=== PATIENT | female | born 1970 | race Caucasian/White ===

== ENCOUNTER → 2016-07-03 | Outpatient (CLI) | payer BC ==
--- NOTE | 2016-07-03 11:23 | CT ---
EXAMINATION TYPE: CT abdomen w con DATE OF EXAM: 07/03/2016 10:33 AM COMPARISON: NONE HISTORY: Patient complains of RUQ pain and mass (marked by BB). CT DLP: 1522 mGycm CONTRAST: CT scan of the abdomen is performed with Oral Contrast and with IV Contrast, patient injected with 10 0 mL of Omnipaque 300. FINDINGS: LUNG BASES-: No visible nodule. No infiltrate. There is right basilar atelectasis. LIVER/GB: Cholecystectomy clips are in place. No space occupying hepatic lesion. Biliary tree is o f normal caliber. PANCREAS: Again noted is fullness in the region of the pancreatic head and uncinate process which may reflect underlying pancreatitis without peripancreatic fluid or pseudocyst. Underlying mass is diffi cult to exclude in one should consider MRI. SPLEEN: No splenic enlargement. No lesion seen. ADRENALS: No nodule. No thickening. KIDNEYS/BLADDER: No hydronephrosis. No nephrolithiasis. No disctinct renal mass. Urinary bladder g rossly unremarkable. BOWEL: Normal appendix. Normal bowel caliber. No inflammation. LYMPH NODES: Multiple small lymph nodes measuring up to 1 cm are noted within the small bowel mesente ry. No evidence for retroperitoneal adenopathy AORTA: No significant abnormality. OSSEOUS STRUCTURES: No significant abnormality is seen. OTHER: Palpable abnormality corresponds to a lipoma measuring 5.5 x 4.1 cm. IMPRESSION: 1. Again noted is fullness in the region of the pancreatic head and uncinate process which may refle ct underlying pancreatitis without peripancreatic fluid or pseudocyst. Underlying mass is difficult t o exclude in one should consider MRI. 2.Palpable abnormality corresponds to a lipoma measuring 5.5 x 4.1 cm.
== END | disposition home or self-care (01) ==
LOC: RADCTMAIN 08:28
PROVIDERS: ATTEND Internal Medicine Critical Care Medicine
DX: R07.89 Other chest pain (principal); R10.11 Right upper quadrant pain
CPT/HCPCS: 74160; Q9967

== ENCOUNTER → 2016-07-06 | Outpatient (CLI) | payer BC | END | disposition home or self-care (01) | LOC: LABWHC1 12:47 | PROVIDERS: ATTEND Internal Medicine Critical Care Medicine | DX: R10.11 Right upper quadrant pain (principal); I10 Essential (primary) hypertension; K86.89 Other specified diseases of pancreas; R93.5 Abnormal findings on diagnostic imaging of other abdominal regions, including retroperitoneum | CPT/HCPCS: 36415; 82150; 82378; 83690; 86301 ==

== ENCOUNTER → 2016-07-11 | Outpatient (CLI) | payer BC ==
[2016-07-11 17:27] LABS: Blood Urea Nitrogen 25 mg/dL (7-17); Non-African American GFR(MDRD) >60 (>60 ml/min/1.73 sqM)
== END ==
LOC: LABWHC1 17:00
PROVIDERS: ATTEND Internal Medicine Critical Care Medicine
DX: R10.11 Right upper quadrant pain (principal)
CPT/HCPCS: 36415; 82565; 84520

== ENCOUNTER → 2018-03-20 | Outpatient (CLI) | payer BC ==
--- NOTE | 2018-03-22 12:14 | MM ---
Reason for exam: screening (asymptomatic). Last mammogram was performed 1 year and 11 months ago. History: Family history of breast cancer in aunt and breast cancer in grandmother. Reductions of both breasts, 1995. Took hormonal contraceptives for 1 year beginning at age 16. Physical Findings: A clinical breast exam by your physician is recommended on an annual basis and results should be correlated with mammographic findings. MG Screening Mammo w CAD Bilateral CC and MLO view(s) were taken. Prior study comparison: April 06, 2016, bilateral MG screening mammo w CAD. April 09, 2015, bilateral MG screening mammo w CAD. There are scattered fibroglandular densities. There is a circumscribed right middle depth lower inner quadrant oval mass back to 2014. No suspicious abnormality. No significant changes when compared with prior studies. ASSESSMENT: Benign, BI-RAD 2 RECOMMENDATION: Routine screening mammogram of both breasts in 1 year.
== END | disposition home or self-care (01) ==
LOC: RADMAMWWP 14:52
PROVIDERS: ATTEND Internal Medicine
DX: Z12.31 Encounter for screening mammogram for malignant neoplasm of breast (principal)
CPT/HCPCS: 77067

== ENCOUNTER → 2019-04-19 | Outpatient (CLI) | payer BC ==
[2019-04-19 12:00] LABS: Basophils % (A) 1 %; Eosinophils # (A) 0.1 k/uL (0-0.7); Eosinophils % (A) 2 %; HCT 42.4 % (34.0-46.0); HGB 13.4 gm/dL (11.4-16.0); Lymphocytes # (A) 1.7 k/uL (1.0-4.8); Lymphocytes % (A) 25 %; MCH 28.1 pg (25.0-35.0); MCHC 31.5 g/dL (31.0-37.0); MCV 89.2 fL (80.0-100.0); Mean Platelet Volume 7.7; Monocytes # (A) 0.4 k/uL (0-1.0); Monocytes % (A) 6 %; Neutrophils # (A) 4.5 k/uL (1.3-7.7); Neutrophils % (A) 66 %; Platelet Count 214 k/uL (150-450); RBC 4.76 m/uL (3.80-5.40); RDW 13.2 % (11.5-15.5); WBC 6.8 k/uL (3.8-10.6)
[2019-04-19 16:33] LABS: African American GFR (CKD) 116.3 (60.0-200.0); Albumin 4.5 g/dL (3.80-4.90); Albumin/Globulin Ratio 1.67 (1.60-3.17); Anion Gap 5.6 mmol/L (4.00-12.00); BUN/Creat Ratio 27.14 Ratio (12.00-20.00); Calcium 9.8 mg/dL (8.7-10.3); Carbon Dioxide 33.4 mmol/L (21.6-31.8); Chol/HDL Ratio 2.86; Globulin 2.7 g/dL (1.6-3.3); LDL Cholesterol,Calculated 95.8 mg/dL (0.0-131.0); Non-African American GFR(CKD) 100.3 (60.0-200.0); Potassium 3.9 mmol/L (3.5-5.5); Total Bilirubin 0.5 mg/dL (0.3-1.2); Total Protein 7.2 g/dL (6.2-8.2); VLDL Calculation 14.2 mg/dL (5.00-40.00)
== END | disposition home or self-care (01) ==
LOC: LABWHC1 10:52
PROVIDERS: ATTEND Internal Medicine
DX: Z00.00 Encounter for general adult medical examination without abnormal findings (principal); Z13.220 Encounter for screening for lipoid disorders; I10 Essential (primary) hypertension
CPT/HCPCS: 36415; 80053; 80061; 85025

== ENCOUNTER 2019-10-19 02:32 | Observation (INO) | payer BC, MEDICARE ==
[2019-10-19] MEDS ORDERED: SODIUM CHLORIDE 0.9% 1,000 ML IV STA (02:41)
--- NOTE | 2019-10-19 02:42 | ED ---
Altered Mental Status HPI - General Chief Complaint: Neuro Symptoms/Deficit Stated Complaint: Altered Mental Status Time Seen by Provider: 10/19/19 02:41 Source: patient, family Mode of arrival: ambulatory Limitations: altered mental status - History of Present Illness Initial Comments: This is a 49-year-old female presents with acute memory loss. Patient has lost all memory of recent events. No prior history of same. Patient was having sexual intercourse when after sexual present illness patient was unable to remember where she was when she was doing in her name was. states patient's memory is not improving brings her DF for evaluation patient is unable to provide history of Recurrent questions is unsure where she has MD Complaint: altered mental status -: minutes(s) Severity: mild Consistency of Symptoms: constant Associated Symptoms: denies other symptoms - Related Data Home Medications Medication Instructions Recorded Confirmed Albuterol Sulfate [Ventolin HFA] 2 puff INHALATION Q4-6H PRN 05/12/15 10/19/19 Metoprolol Tartrate 50 mg PO DAILY 05/12/15 10/19/19 Cholecalciferol [Vitamin D3 (25 1,000 unit PO DAILY 10/19/19 10/19/19 Mcg = 1000 Iu)] Cyanocobalamin [Vitamin B-12] 500 mcg PO DAILY 10/19/19 10/19/19 Ferrous Gluconate 324 mg PO DAILY 10/19/19 10/19/19 Hydrochlorothiazide [Hydrodiuril] 25 mg PO DAILY 10/19/19 10/19/19 Levothyroxine Sodium [Synthroid] 150 mcg PO DAILY 10/19/19 10/19/19 Levothyroxine Sodium [Synthroid] 150 mcg PO DAILY 10/19/19 10/19/19 Pyridostigmine [Mestinon] 60 mg PO Q4H 10/19/19 10/19/19 Zinc 50 mg PO DAILY 10/19/19 10/19/19 Allergies Allergy/AdvReac Type Severity Reaction Status Date / Time No Known Allergies Allergy Verified 10/19/19 16:33 Review of Systems ROS Statement: Those systems with pertinent positive or pertinent negative responses have been documented in the HPI. ROS Other: All systems not noted in ROS Statement are negative. 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 History of Any Multi-Drug Resistant Organisms: None Reported Past Surgical History: Breast Surgery, Section, Cholecystectomy Past Psychological History: Anxiety Smoking Status: Former smoker Past Alcohol Use History: None Reported Past Drug Use History: None Reported General Exam Limitations: no limitations General appearance: alert, in no apparent distress Head exam: Present: atraumatic, normocephalic, normal inspection Eye exam: Present: normal appearance, PERRL, EOMI. Absent: scleral icterus, conjunctival injection, periorbital swelling ENT exam: Present: normal exam, mucous membranes moist Neck exam: Present: normal inspection. Absent: tenderness, meningismus, lymphad enopathy Respiratory exam: Present: normal lung sounds bilaterally. Absent: respiratory distress, wheezes, rales, rhonchi, stridor Cardiovascular Exam: Present: regular rate, normal rhythm, normal heart sounds. Absent: systolic murmur, diastolic murmur, rubs, gallop, clicks GI/Abdominal exam: Present: soft, normal bowel sounds. Absent: distended, tenderness, guarding, rebound, rigid Extremities exam: Present: normal inspection, full ROM, normal capillary refill. Absent: tenderness, pedal edema, joint swelling, calf tenderness Back exam: Present: normal inspection Neurological exam: Present: alert, oriented X3, CN II-XII intact Psychiatric exam: Present: normal affect, normal mood Skin exam: Present: warm, dry, intact, normal color. Absent: rash Course Vital Signs 10/19/19 10/19/19 10/19/19 02:35 03:20 04:00 Temperature 97.8 F Pulse Rate 104 H 66 76 Pulse Rate [ Right Radial] Respiratory 18 16 18 Rate Blood Pressure 145/80 125/78 127/88 Blood Pressure [Right Arm] O2 Sat by Pulse 96 96 97 Oximetry 10/19/19 10/19/19 10/19/19 05:00 06:00 10:37 Temperature Pulse Rate 65 72 60 Pulse Rate [ Right Radial] Respiratory 19 16 18 Rate Blood Pressure 119/73 126/71 115/66 Blood Pressure [Right Arm] O2 Sat by Pulse 97 97 98 Oximetry 10/19/19 10/19/19 10/19/19 13:39 15:38 16:00 Temperature 97.4 F L Pulse Rate 66 87 Pulse Rate [ 52 L Right Radial] Respiratory 20 16 16 Rate Blood Pressure 118/79 119/87 Blood Pressure 115/65 [Right Arm] O2 Sat by Pulse 99 99 99 Oximetry - Reevaluation(s) Reevaluation #1: Medical records reviewed No improvement in symptoms here in the ER Medical Decision Making - Medical Decision Making 49 female with transient global amnesia secondary sexual intercourse. Patient is no acute distress or findings here in the ER no focal neurological deficit. Patient will be admitted for observation - Lab Data Result diagrams: 10/19/19 02:49 10/19/19 02:49 Lab Results 10/19/19 10/19/19 10/19/19 Range/Units 02:44 02:49 02:49 WBC 8.1 (3.8-10.6) k/uL RBC 4.78 (3.80-5.40) m/uL Hgb 13.2 (11.4-16.0) gm/dL Hct 41.8 (34.0-46.0) % MCV 87.5 (80.0-100.0) fL MCH 27.6 (25.0-35.0) pg MCHC 31.5 (31.0-37.0) g/dL RDW 13.4 (11.5-15.5) % Plt Count 216 (150-450) k/uL Neutrophils % 77 % Lymphocytes % 15 % Monocytes % 6 % Eosinophils % 1 % Basophils % 0 % Neutrophils # 6.2 (1.3-7.7) k/uL Lymphocytes # 1.2 (1.0-4.8) k/uL Monocytes # 0.5 (0-1.0) k/uL Eosinophils # 0.1 (0-0.7) k/uL Basophils # 0.0 (0-0.2) k/uL PT 9.8 (9.0-12.0) sec INR 0.9 (<1.2) APTT 24.8 (22.0-30.0) sec Sodium (137-145) mmol/L Potassium (3.5-5.1) mmol/L Chloride (98-107) mmol/L Carbon Dioxide (22-30) mmol/L Anion Gap mmol/L BUN (7-17) mg/dL Creatinine (0.52-1.04) mg/dL Est GFR (CKD-EPI)AfAm (>60 ml/min/1.73 sqM) Est GFR (CKD-EPI)NonAf (>60 ml/min/1.73 sqM) Glucose (74-99) mg/dL POC Glucose (mg/dL) 113 H (75-99) mg/dL POC Glu Supply Crib Attendant ID Patrice Michel Calcium (8.4-10.2) mg/dL Total Bilirubin (0.2-1.3) mg/dL AST (14-36) U/L ALT (4-34) U/L Alkaline Phosphatase (38-126) U/L Creatine Kinase (30-135) U/L Troponin I (0.000-0.034) ng/mL Total Protein (6.3-8.2) g/dL Albumin (3.5-5.0) g/dL Triglycerides (<150) mg/dL Cholesterol (<200) mg/dL LDL Cholesterol, Calc (0-99) mg/dL HDL Cholesterol (40-60) mg/dL Urine Color Urine Appearance (Clear) Urine pH (5.0-8.0) Ur Specific [place] (1.001-1.035) Urine Protein (Negative) Urine Glucose (UA) (Negative) Urine Ketones (Negative) Urine Blood (Negative) Urine Nitrite (Negative) Urine Bilirubin (Negative) Urine Urobilinogen (<2.0) mg/dL Ur Leukocyte Esterase (Negative) Urine Opiates Screen (NotDetected) Ur Oxycodone Screen (NotDetected) Urine Methadone Screen (NotDetected) Ur Propoxyphene Screen (NotDetected) Ur Barbiturates Screen (NotDetected) U Tricyclic Antidepress (NotDetected) Ur Phencyclidine Scrn (NotDetected) Ur Amphetamines Screen (NotDetected) U Methamphetamines Scrn (NotDetected) U Benzodiazepines Scrn (NotDetected) Urine Cocaine Screen (NotDetected) U Marijuana (THC) Screen (NotDetected) 10/19/19 10/19/19 10/19/19 Range/Units 02:49 02:49 02:49 WBC (3.8-10.6) k/uL RBC (3.80-5.40) m/uL Hgb (11.4-16.0) gm/dL Hct (34.0-46.0) % MCV (80.0-100.0) fL MCH (25.0-35.0) pg MCHC (31.0-37.0) g/dL RDW (11.5-15.5) % Plt Count (150-450) k/uL Neutrophils % % Lymphocytes % % Monocytes % % Eosinophils % % Basophils % % Neutrophils # (1.3-7.7) k/uL Lymphocytes # (1.0-4.8) k/uL Monocytes # (0-1.0) k/uL Eosinophils # (0-0.7) k/uL Basophils # (0-0.2) k/uL PT (9.0-12.0) sec INR (<1.2) APTT (22.0-30.0) sec Sodium 140 (137-145) mmol/L Potassium 3.7 (3.5-5.1) mmol/L Chloride 105 (98-107) mmol/L Carbon Dioxide 28 (22-30) mmol/L Anion Gap 7 mmol/L BUN 23 H (7-17) mg/dL Creatinine 0.75 (0.52-1.04) mg/dL Est GFR (CKD-EPI)AfAm >90 (>60 ml/min/1.73 sqM) Est GFR (CKD-EPI)NonAf >90 (>60 ml/min/1.73 sqM) Glucose 116 H (74-99) mg/dL POC Glucose (mg/dL) (75-99) mg/dL POC Glu Supply Crib Attendant ID Calcium 10.0 (8.4-10.2) mg/dL Total Bilirubin 0.3 (0.2-1.3) mg/dL AST 29 (14-36) U/L ALT 22 (4-34) U/L Alkaline Phosphatase 108 (38-126) U/L Creatine Kinase 54 (30-135) U/L Troponin I <0.012 (0.000-0.034) ng/mL Total Protein 8.4 H (6.3-8.2) g/dL Albumin 4.8 (3.5-5.0) g/dL Triglycerides 46 (<150) mg/dL Cholesterol 200 H (<200) mg/dL LDL Cholesterol, Calc 130 H (0-99) mg/dL HDL Cholesterol 61 H (40-60) mg/dL Urine Color Urine Appearance (Clear) Urine pH (5.0-8.0) Ur Specific [place] (1.001-1.035) Urine Protein (Negative) Urine Glucose (UA) (Negative) Urine Ketones (Negative) Urine Blood (Negative) Urine Nitrite (Negative) Urine Bilirubin (Negative) Urine Urobilinogen (<2.0) mg/dL Ur Leukocyte Esterase (Negative) Urine Opiates Screen (NotDetected) Ur Oxycodone Screen (NotDetected) Urine Methadone Screen (NotDetected) Ur Propoxyphene Screen (NotDetected) Ur Barbiturates Screen (NotDetected) U Tricyclic Antidepress (NotDetected) Ur Phencyclidine Scrn (NotDetected) Ur Amphetamines Screen (NotDetected) U Methamphetamines Scrn (NotDetected) U Benzodiazepines Scrn (NotDetected) Urine Cocaine Screen (NotDetected) U Marijuana (THC) Screen (NotDetected) 10/19/19 Range/Units 03:58 WBC (3.8-10.6) k/uL RBC (3.80-5.40) m/uL Hgb (11.4-16.0) gm/dL Hct (34.0-46.0) % MCV (80.0-100.0) fL MCH (25.0-35.0) pg MCHC (31.0-37.0) g/dL RDW (11.5-15.5) % Plt Count (150-450) k/uL Neutrophils % % Lymphocytes % % Monocytes % % Eosinophils % % Basophils % % Neutrophils # (1.3-7.7) k/uL Lymphocytes # (1.0-4.8) k/uL Monocytes # (0-1.0) k/uL Eosinophils # (0-0.7) k/uL Basophils # (0-0.2) k/uL PT (9.0-12.0) sec INR (<1.2) APTT (22.0-30.0) sec Sodium (137-145) mmol/L Potassium (3.5-5.1) mmol/L Chloride (98-107) mmol/L Carbon Dioxide (22-30) mmol/L Anion Gap mmol/L BUN (7-17) mg/dL Creatinine (0.52-1.04) mg/dL Est GFR (CKD-EPI)AfAm (>60 ml/min/1.73 sqM) Est GFR (CKD-EPI)NonAf (>60 ml/min/1.73 sqM) Glucose (74-99) mg/dL POC Glucose (mg/dL) (75-99) mg/dL POC Glu Supply Crib Attendant ID Calcium (8.4-10.2) mg/dL Total Bilirubin (0.2-1.3) mg/dL AST (14-36) U/L ALT (4-34) U/L Alkaline Phosphatase (38-126) U/L Creatine Kinase (30-135) U/L Troponin I (0.000-0.034) ng/mL Total Protein (6.3-8.2) g/dL Albumin (3.5-5.0) g/dL Triglycerides (<150) mg/dL Cholesterol (<200) mg/dL LDL Cholesterol, Calc (0-99) mg/dL HDL Cholesterol (40-60) mg/dL Urine Color Yellow Urine Appearance Clear (Clear) Urine pH 5.0 (5.0-8.0) Ur Specific [place] 1.041 H (1.001-1.035) Urine Protein Negative (Negative) Urine Glucose (UA) Negative (Negative) Urine Ketones Negative (Negative) Urine Blood Negative (Negative) Urine Nitrite Negative (Negative) Urine Bilirubin Negative (Negative) Urine Urobilinogen <2.0 (<2.0) mg/dL Ur Leukocyte Esterase Negative (Negative) Urine Opiates Screen Not Detected (NotDetected) Ur Oxycodone Screen Not Detected (NotDetected) Urine Methadone Screen Not Detected (NotDetected) Ur Propoxyphene Screen Not Detected (NotDetected) Ur Barbiturates Screen Not Detected (NotDetected) U Tricyclic Antidepress Not Detected (NotDetected) Ur Phencyclidine Scrn Not Detected (NotDetected) Ur Amphetamines Screen Not Detected (NotDetected) U Methamphetamines Scrn Not Detected (NotDetected) U Benzodiazepines Scrn Not Detected (NotDetected) Urine Cocaine Screen Not Detected (NotDetected) U Marijuana (THC) Screen Not Detected (NotDetected) - EKG Data -: EKG Interpreted by Me (EKG shows sinus a 95 PA 200 QRS 92 QTC 444) - Radiology Data Radiology results: report reviewed (CT brain CTA had neck negative for acute disease), image reviewed Disposition Clinical Impression: Transient global amnesia Disposition: ADMITTED IP TO THIS [facility] Condition: Good Is patient prescribed a controlled substance at d/c from ED?: No
[2019-10-19 02:53] LABS: Glucose,Whole Blood 113 mg/dL (75-99)
[2019-10-19 03:07] LABS: INR 0.9 (<1.2); Partial Thromboplastin Time 24.8 sec (22.0-30.0); Prothrombin Time 9.8 sec (9.0-12.0)
[2019-10-19 03:17] LABS: ALT 22 U/L (4-34); AST 29 U/L (14-36); African American GFR (CKD) >90 (>60 ml/min/1.73 sqM); Albumin 4.8 g/dL (3.5-5.0); Alkaline Phosphatase 108 U/L (38-126); Anion Gap 7 mmol/L; Basophils % (A) 0 %; Blood Urea Nitrogen 23 mg/dL (7-17); Carbon Dioxide 28 mmol/L (22-30); Chloride 105 mmol/L (98-107); Creatine Kinase 54 U/L (30-135); Eosinophils # (A) 0.1 k/uL (0-0.7); Eosinophils % (A) 1 %; Glucose 116 mg/dL (74-99); HCT 41.8 % (34.0-46.0); HGB 13.2 gm/dL (11.4-16.0); Lymphocytes # (A) 1.2 k/uL (1.0-4.8); Lymphocytes % (A) 15 %; MCH 27.6 pg (25.0-35.0); MCHC 31.5 g/dL (31.0-37.0); MCV 87.5 fL (80.0-100.0); Mean Platelet Volume 7.7; Monocytes # (A) 0.5 k/uL (0-1.0); Monocytes % (A) 6 %; Neutrophils # (A) 6.2 k/uL (1.3-7.7); Neutrophils % (A) 77 %; Non-African American GFR(CKD) >90 (>60 ml/min/1.73 sqM); Platelet Count 216 k/uL (150-450); Potassium 3.7 mmol/L (3.5-5.1); RBC 4.78 m/uL (3.80-5.40); RDW 13.4 % (11.5-15.5); Sodium 140 mmol/L (137-145); Total Bilirubin 0.3 mg/dL (0.2-1.3); Total Protein 8.4 g/dL (6.3-8.2); WBC 8.1 k/uL (3.8-10.6)
--- NOTE | 2019-10-19 03:43 | CT ---
EXAMINATION TYPE: CT brain wo con for TPA DATE OF EXAM: 10/19/2019 COMPARISON: 12/10/2013 HISTORY: code stroke CT DLP: 1040 mGycm Automated exposure control for dose reduction was used. Images were obtained without contrast. Ventricles and sulci appear normal. There is no mass effect nor midline shift. There is no sign of in tracranial hemorrhage. The calvarium is intact. There is no evidence of cerebral edema. IMPRESSION: Negative CT scan of the brain. No change.
--- NOTE | 2019-10-19 03:48 | CT ---
EXAMINATION TYPE: CT angio head neck DATE OF EXAM: 10/19/2019 COMPARISON: None HISTORY: neuro deficits CT DLP: 734.8 mGycm Automated exposure control for dose reduction was used. CONTRAST: Performed with IV Contrast, patient injected with 65 mL of Isovue 370. There are 3-D post processed images. There is normal branching pattern of the great vessels on the aortic arch. There is bilateral arteria l flow in the subclavian arteries. There is arterial flow in the common internal and external carotid arteries bilaterally. There is arterial flow in both vertebral arteries. There is wide patency of th e internal carotid arteries. There is some medial deviation of the proximal internal carotid arteries bilaterally which is considered normal variation. There is no evidence of carotid or vertebral arter y aneurysm or dissection. There is arterial flow in the vertebrobasilar artery system. There is arterial flow in the anterior middle and posterior cerebral arteries. There is no mass effec t. There is no evidence of intracranial aneurysm or neovascularity. I see no evidence of intracranial arterial stenosis. There is normal contrast opacification of the venous sinuses. Skull base is intact. There is normal aeration of the temporal bones. There is no evidence of posteri or fossa mass. There is no evidence of cerebral edema. IMPRESSION: Normal CT angiogram of the neck. Normal CT angiogram of the brain.
--- NOTE | 2019-10-19 03:49 | XR ---
EXAMINATION TYPE: XR chest 1V portable DATE OF EXAM: 10/19/2019 COMPARISON: 02/04/2013 HISTORY: Altered mental status. Weakness TECHNIQUE: FINDINGS: There is poor inspiration. There is no heart failure nor confluent pneumonic infiltrate. Th ere is elevation of both diaphragms. There are chest leads. Bony thorax appears intact. IMPRESSION: Poor inspiration that is similar to old exam. Normal heart.
[2019-10-19] MEDS ORDERED: ASPIRIN 325 MG TAB PO STA (04:09)
[2019-10-19 04:10] LABS: Appearance,Urine Clear (Clear); Bilirubin,Urine Negative (Negative); Blood,Urine Negative (Negative); Color,Urine Yellow; Glucose,Urine (UA) Negative (Negative); Ketones,Urine Negative (Negative); Leukocyte Esterase,Urine Negative (Negative); Nitrite,Urine Negative (Negative); Protein,Urine Negative (Negative); Specific Gravity,Urine 1.041 (1.001-1.035); Urobilinogen,Urine <2.0 mg/dL (<2.0)
[2019-10-19 04:31] LABS: Amphetamine Screen,Urine Not Detected (NotDetected); Barbiturate Screen,Urine Not Detected (NotDetected); Benzodiazepines Screen,Urine Not Detected (NotDetected); Cocaine Screen,Urine Not Detected (NotDetected); Methadone Screen, Urine Not Detected (NotDetected); Opiate Screen,Urine Not Detected (NotDetected); Oxycodone Screen, Urine Not Detected (NotDetected); Phencyclidine Screen,Urine Not Detected (NotDetected); Tricyclic Antidepressant,Urine Not Detected (NotDetected); Urn Cannabinoid Scrn Not Detected (NotDetected)
[2019-10-19] MEDS: SODIUM CHLORIDE 0.9% 1,000 ML IV SCH ×2 (05:07→16:42)
[2019-10-19] MEDS ORDERED: ALBUTEROL NEBULIZED 2.5 MG/3 ML INHALATION PRN (12:46)
--- NOTE | 2019-10-19 12:52 | P.HPIM ---
History of Present Illness This is a pleasant 49 years old female with past medical history of asthma, hypertension, hypothyroidism, myasthenia gravis, on replacement therapy and she follows up with Dr. Ivey. She is a patient of Dr. Paul. Patient presents to the hospital because yesterday she was not feeling well, she felt not tried and not oriented "I was thinking right" she had a feeling she did not know where she at, this happened while having sexual activity, and it was doing the activities and after it, although she knew she was at her house. She thought she had a stroke so she decided to come to the hospital. She denies headache, no dizzin ess or lightheadedness, no syncope. No blurred vision or difficulty swallowing. No weakness or numbness. She denies smoking, alcohol or illicit drugs. No recent medicine Vitas looks stable. Afebrile. Labs including CBC, BMP, INR and liver enzymes were unremarkable. Troponin is negative at less than 0.012. Urine analysis is negative and urine toxic screen is negative as well. EKG: Normal sinus rhythm at [address]-T changes and QTC of 444, She has negative CT of the brain, also CTA of the brain and neck is normal Also patient was thinking or been discharged today, I explained to the patient she was cleared medically for discharge and neurologist needs to see her, patie nt was counseled against leaving AMA, risks including but not limited to stroke, organ dysfunction and/or , she verbalized understanding and acceptance and she decided to stay for now. Based upon my evaluation patient has capacity to make medical decision Review of Systems CONSTITUTIONAL: No fever, no malaise, no fatigue. HEENT: No recent visual problems or hearing problems. Denied any sore throat. CARDIOVASCULAR: No orthopnea, PND, no palpitations, no syncope. PULMONARY: No shortness of breath, no cough, no hemoptysis. GASTROINTESTINAL: No diarrhea, no nausea, no vomiting, no abdominal pain. Normoactive bowel sounds. NEUROLOGICAL: No headaches, no weakness, no numbness. HEMATOLOGICAL: Denies any bleeding or petechiae. GENITOURINARY: Denies any burning micturition, frequency, or urgency. MUSCULOSKELETAL/RHEUMATOLOGICAL: Denies any joint pain, swelling, or any muscle pain. ENDOCRINE: Denies any polyuria or polydipsia. 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 History of Any Multi-Drug Resistant Organisms: None Reported Past Surgical History: Breast Surgery, Section, Cholecystectomy Past Psychological History: Anxiety Smoking Status: Former smoker Past Alcohol Use History: None Reported Past Drug Use History: None Reported Medications and Allergies Home Medications Medication Instructions Recorded Confirmed Type Albuterol Sulfate [Ventolin HFA] 2 puff INHALATION Q4-6H PRN 05/12/15 10/19/19 History Metoprolol Tartrate 50 mg PO DAILY 05/12/15 10/19/19 History Cholecalciferol [Vitamin D3 (25 1,000 unit PO DAILY 10/19/19 10/19/19 History Mcg = 1000 Iu)] Cyanocobalamin [Vitamin B-12] 500 mcg PO DAILY 10/19/19 10/19/19 History Ferrous Gluconate 324 mg PO DAILY 10/19/19 10/19/19 History Hydrochlorothiazide [Hydrodiuril] 25 mg PO DAILY 10/19/19 10/19/19 History Levothyroxine Sodium [Synthroid] 150 mcg PO DAILY 10/19/19 10/19/19 History Levothyroxine Sodium [Synthroid] 150 mcg PO DAILY 10/19/19 10/19/19 History Pyridostigmine [Mestinon] 60 mg PO Q4H 10/19/19 10/19/19 History Zinc 50 mg PO DAILY 10/19/19 10/19/19 History Allergies Allergy/AdvReac Type Severity Reaction Status Date / Time No Known Allergies Allergy Verified 10/19/19 07:36 Physical Exam Vitals: Vital Signs Temp Pulse Resp BP Pulse Ox 10/19/19 10:37 60 18 115/66 98 10/19/19 06:00 72 16 126/71 97 10/19/19 05:00 65 19 119/73 97 10/19/19 04:00 76 18 127/88 97 10/19/19 03:20 66 16 125/78 96 10/19/19 02:35 97.8 F 104 H 18 145/80 96 Intake and Output 10/18/19 10/19/19 10/19/19 22:59 06:59 14:59 Other: Weight 90.718 kg GENERAL: The patient is alert and oriented x3, not in any acute distress. Well developed, well nourished. HEENT: Pupils are round and equally reacting to light. EOMI. No scleral icterus. No conjunctival pallor. Normocephalic, atraumatic. No pharyngeal erythema. No thyromegaly. CARDIOVASCULAR: S1 and S2 present. No murmurs, rubs, or gallops. PULMONARY: Chest is clear to auscultation, no wheezing or crackles. ABDOMEN: Soft, nontender, nondistended, normoactive bowel sounds. No palpable organomegaly. MUSCULOSKELETAL: No joint swelling or deformity. EXTREMITIES: No cyanosis, clubbing, or pedal edema. NEUROLOGICAL: Gross neurological examination did not reveal any focal deficits. SKIN: No rashes. No petechiae Results CBC & Chem 7: 10/19/19 02:49 10/19/19 02:49 Labs: Abnormal Lab Results - Last 24 Hours (Table) 10/19/19 10/19/19 10/19/19 Range/Units 02:44 02:49 03:58 BUN 23 H (7-17) mg/dL Glucose 116 H (74-99) mg/dL POC Glucose (mg/dL) 113 H (75-99) mg/dL Total Protein 8.4 H (6.3-8.2) g/dL Ur Specific [place] 1.041 H (1.001-1.035) Assessment and Plan Assessment: Short period of disturbed thinking of one-day duration Hypertension Hypothyroidism Myasthenia gravis, on replacement therapy. Status post thymectomy Asthma, not in active tissue Obesity with BMI of 35 Plan: This is a pleasant 49 years old female who presents because was not thinking right. Continue with aspirin, neurology consult. Labs and medication were reviewed.. Continue same treatment. Continue with symptomatic treatment. Resume home medication. Monitor lytes and vitals. DVT and GI prophylaxis. Further recommendations of the clinical course of the patient DVT prophylaxis: Subcutaneous heparin GI Prophylaxis: Pepcid
[2019-10-19] MEDS: PYRIDOSTIGMINE 60 MG TAB PO SCH ×2 (16:44→20:16)
[2019-10-19] MEDS: HEPARIN SODIUM,PORCINE 5,000 UNIT/ML 1 ML VIAL SQ SCH (20:17)
[2019-10-19] MEDS: FAMOTIDINE 20 MG/2 ML VIAL IV SCH (20:17)
[2019-10-20] MEDS: SODIUM CHLORIDE 0.9% 1,000 ML IV SCH ×2 (04:28→22:32)
[2019-10-20] MEDS: PYRIDOSTIGMINE 60 MG TAB PO SCH ×6 (05:31→23:38)
[2019-10-20] MEDS: LEVOTHYROXINE 88 MCG TAB PO SCH (05:31)
[2019-10-20 06:08] LABS: Cholesterol 200 mg/dL (<200); HDL Cholesterol 61 mg/dL (40-60); LDL Cholesterol,Calculated 130 mg/dL (0-99); Triglycerides 46 mg/dL (<150)
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
[2019-10-20] MEDS: ASPIRIN 325 MG TAB PO SCH (09:30)
[2019-10-20] MEDS: METOPROLOL TARTRATE 50 MG TAB PO SCH (09:30)
[2019-10-20] MEDS: HEPARIN SODIUM,PORCINE 5,000 UNIT/ML 1 ML VIAL SQ SCH ×3 (09:30→21:08)
[2019-10-20] MEDS: HYDROCHLOROTHIAZIDE 25 MG TAB PO SCH (09:30)
[2019-10-20] MEDS: ZINC SULFATE 220 MG CAP PO SCH (09:30)
[2019-10-20] MEDS: FAMOTIDINE 20 MG/2 ML VIAL IV SCH ×2 (09:30→09:34)
[2019-10-20] MEDS: CYANOCOBALAMIN 500 MCG TAB PO SCH (09:30)
[2019-10-20] MEDS: FERROUS SULFATE 325 MG TAB PO SCH (09:30)
[2019-10-20] MEDS: FAMOTIDINE 20 MG TAB PO SCH (16:42)
--- NOTE | 2019-10-20 17:18 | P.CNNES ---
History of Present Illness Consult date: 10/20/19 Requesting physician: Bon Guillen Reason for Consult: Periods of disturbed orientation and thinking process History of Present Illness: Patient is a 49-year-old female came to the hospital because of episode of amnesia. Patient states that on Sunday night, 10/18/2019, patient had sexual intercourse at 11 PM. Patient apparently does not remember having sex that night. Patient's went down to get a towel, and when he came in, she was walking around naked which she does not remember. Patient had washed her uniform earlier, which was hanging on the door. Patient could not remember who washed her clothes and who hung up her uniform. She asked the same question about 20 times. Patient later could not remember having her son's dog in the house for 2 months. She had earlier taken ice cream to the [employer] which she does not remember. Patient was brought to the hospital by her , and she does not remember ride to the hospital although she does remember vaguely being in a parking lot of the hospital. She does not remember coming inside the hospital in the wheelchair, or getting computed tomography scan or placement of IV line. She does not remember taking her earrings or the necklace out, and changing from her regular clothes to the hospital gown. CT head negative for acute process. CTA of head and neck normal. Chest x-ray showed Poor inspiration that is similar to old exam. Normal heart. EKG with normal sinus rhythm. Blood test shows normal CBC, CMP. Total cholesterol 200, LDL 1:30, HDL 61 and triglycerides 46. UA and urine drug screen negative. Patient states that about a week ago after having sex also at night, she became somewhat confused, told her "what I'm supposed to do now". Patient's told her to go to sleep. Next morning she was fine. There was no convulsive activity noted with any of these spells. Patient's speech and language functions remained normal. 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 Patient has history of myasthenia gravis, which is fairly well controlled although she still gets symptoms. Patient denies alcohol tobacco or drugs. Review of Systems Patient denies headache, denies double vision, no nausea vomiting diarrhea. Denies any focal numbness tingling weakness slurred speech. Denies abdominal pain nausea vomiting diarrhea. Patient does complain of some neck pain. Denies back pain. All other review of systems unremarkable. 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 History of Any Multi-Drug Resistant Organisms: None Reported Past Surgical History: Breast Surgery, Section, Cholecystectomy Past Anesthesia/Blood Transfusion Reactions: Previous Problems w/ Anesthesia Additional Past Anesthesia/Blood Transfusion Reaction / Comment(s): states has myastenia gravis Past Psychological History: Anxiety Smoking Status: Former smoker Past Alcohol Use History: None Reported Past Drug Use History: None Reported Medications and Allergies Home Medications Medication Instructions Recorded Confirmed Type Albuterol Sulfate [Ventolin HFA] 2 puff INHALATION Q4-6H PRN 05/12/15 10/19/19 History Metoprolol Tartrate 50 mg PO DAILY 05/12/15 10/19/19 History Cholecalciferol [Vitamin D3 (25 1,000 unit PO DAILY 10/19/19 10/19/19 History Mcg = 1000 Iu)] Cyanocobalamin [Vitamin B-12] 500 mcg PO DAILY 10/19/19 10/19/19 History Ferrous Gluconate 324 mg PO DAILY 10/19/19 10/19/19 History Hydrochlorothiazide [Hydrodiuril] 25 mg PO DAILY 10/19/19 10/19/19 History Levothyroxine Sodium [Synthroid] 150 mcg PO DAILY 10/19/19 10/19/19 History Levothyroxine Sodium [Synthroid] 150 mcg PO DAILY 10/19/19 10/19/19 History Pyridostigmine [Mestinon] 60 mg PO Q4H 10/19/19 10/19/19 History Zinc 50 mg PO DAILY 10/19/19 10/19/19 History Allergies Allergy/AdvReac Type Severity Reaction Status Date / Time No Known Allergies Allergy Verified 10/19/19 16:33 Physical Examination - Vital Signs Vital Signs: Vital Signs Temp Pulse Pulse Pulse Resp BP BP 10/20/19 11:00 56 L 16 133/62 10/20/19 09:30 98.1 F 55 L 16 143/64 10/20/19 04:00 98.2 F 62 16 114/54 06/28/20 23:51 52 L 16 100/58 10/19/19 20:00 98.5 F 60 12 132/59 10/19/19 16:00 97.4 F L 52 L 16 115/65 10/19/19 15:38 87 16 119/87 Pulse Ox 10/20/19 11:00 97 10/20/19 09:30 99 10/20/19 04:00 100 10/19/19 23:51 100 10/19/19 20:00 98 10/19/19 16:00 99 10/19/19 15:38 99 Intake and Output 10/20/19 10/20/19 10/20/19 06:59 14:59 22:59 Other: # Voids 2 # Bowel Movements 1 Weight 92.5 kg On examination patient is a middle aged female, in no acute distress. Patient is alert and awake oriented to time place and person. Speech and language functions are normal. Attention and concentration fund of knowledge is adequate. On cranial examination, pupils are round and reactive to light, visual buchanan are full on confrontation, extraocular muscles are intact with no nystagmus. Face is symmetric, tongue protrudes the midline. Palatal elevation sensation normal. Hearing and shoulder shrug normal. On muscle strength testing there is no pronator drift and the strength is normal in arms and legs distally and proximally. Reflexes are 2+ and plantars downgoing. Sensory touch is equal. No ataxia for [id number] testing. Tone and bulk of muscles normal. No carotid bruit or murmur, peripheral pulses present. Abdomen soft nontender, chest clear. Results - Laboratory Findings CBC and BMP: 10/19/19 02:49 10/19/19 02:49 Abnormal Lab Findings: Abnormal Labs 10/19/19 10/19/19 10/19/19 02:44 02:49 02:49 BUN 23 H Glucose 116 H POC Glucose (mg/dL) 113 H Total Protein 8.4 H Cholesterol 200 H LDL Cholesterol, Calc 130 H HDL Cholesterol 61 H Ur Specific [place] 10/19/19 03:58 BUN Glucose POC Glucose (mg/dL) Total Protein Cholesterol LDL Cholesterol, Calc HDL Cholesterol Ur Specific [place] 1.041 H Assessment and Plan Assessment: * Probable transient global amnesia. Rule out TIA or partial seizure. * History of seizures as childhood. * Myasthenia gravis, currently in remission. Plan: * Patient will undergo an MRI of the brain to rule out CVA or mass lesion, or evidence of mesial temporal sclerosis. * EEG to rule out epileptiform activity. * 2-D echo with bubble study to rule out PFO. * Neurology will follow after above testing is completed.
[2019-10-21] MEDS: PYRIDOSTIGMINE 60 MG TAB PO SCH ×3 (05:33→16:49)
[2019-10-21] MEDS: LEVOTHYROXINE 88 MCG TAB PO SCH (05:33)
[2019-10-21] MEDS ORDERED: CYCLOBENZAPRINE 5 MG TAB PO PRN (09:17)
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
[2019-10-21] MEDS ORDERED: LORazepam 2 MG/ML INJ IV PRN (10:25)
[2019-10-21] MEDS: FAMOTIDINE 20 MG TAB PO SCH (10:27)
[2019-10-21] MEDS: CYANOCOBALAMIN 500 MCG TAB PO SCH (10:27)
[2019-10-21] MEDS: FERROUS SULFATE 325 MG TAB PO SCH (10:27)
[2019-10-21] MEDS: METOPROLOL TARTRATE 50 MG TAB PO SCH (10:27)
[2019-10-21] MEDS: ASPIRIN 325 MG TAB PO SCH (10:27)
[2019-10-21] MEDS: HEPARIN SODIUM,PORCINE 5,000 UNIT/ML 1 ML VIAL SQ SCH (10:28)
[2019-10-21] MEDS: ZINC SULFATE 220 MG CAP PO SCH (10:29)
[2019-10-21] MEDS: HYDROCHLOROTHIAZIDE 25 MG TAB PO SCH (10:29)
--- NOTE | 2019-10-21 10:36 | US ---
EXAMINATION TYPE: US venous doppler duplex LE DATE OF EXAM: 10/21/2019 10:03 AM COMPARISON: NONE CLINICAL HISTORY: 49-year-old female rule out DVT. Bilateral leg pain x 1 day SIDE PERFORMED: Bilateral TECHNIQUE: The lower extremity deep venous system is examined utilizing real time linear array sonog kirsty with graded compression, doppler sonography and color-flow sonography. FINDINGS: VESSELS IMAGED: External Iliac Vein (EIV) Common Femoral Vein Deep Femoral Vein Greater Saphenous Vein * Femoral Vein Popliteal Vein Small Saphenous Vein * Proximal Calf Veins (* superficial vessels) Right Leg: Appears negative for DVT Left Leg: Appears negative for DVT IMPRESSION: No evidence for DVT within the bilateral lower extremities imaged from the groin to the upper calves.
[2019-10-21 10:51] VITALS: RESP 18
--- NOTE | 2019-10-21 11:08 | ECHOF ---
Referral Reason:Transient global amnesia, rule out TIA MEASUREMENTS -------- HEIGHT: 160.0 cm WEIGHT: 92.1 kg BP: 113/59 RVIDd: 3.1 cm (< 3.3) IVSd: 1.0 cm (0.6 - 1.1) LVIDd: 4.6 cm (3.9 - 5.3) LVPWd: 1.0 cm (0.6 - 1.1) IVSs: 1.4 cm LVIDs: 2.7 cm LVPWs: 1.5 cm LA Diam: 3.7 cm (2.7 - 3.8) LAESV Index (A-L): 24.43 ml/m Ao Diam: 3.1 cm (2.0 - 3.7) AV Cusp: 2.1 cm (1.5 - 2.6) MV EXCURSION: 17.007 mm (> 18.000) MV EF SLOPE: 89 mm/s (70 - 150) EPSS: 0.3 cm MV E Joe: 0.84 m/s MV DecT: 251 ms MV A Joe: 0.83 m/s MV E/A Ratio: 1.01 RAP: 5.00 mmHg RVSP: 24.48 mmHg FINDINGS -------- Sinus rhythm. This was a technically good study. The left ventricular size is normal. Left ventricular wall thickness is normal. Overall left vent ricular systolic function is normal with, an EF between 60 - 65 %. The right ventricle is normal in size. Normal LA size by volume 22+/-6 ml/m2. The right atrium is normal in size. Contrast study was performed with 2 iv injections of 8 ccs of agitated normal saline, at rest, and wi th cough. No PFO noted Interatrial and interventricular septum intact. The aortic valve is trileaflet and appears structurally normal. The mitral valve is normal. Mild tricuspid regurgitation present. Right ventricular systolic pressure is normal at < 35 mmHg. Trace/mild (physiologic) pulmonic regurgitation. The aortic root size is normal. Normal inferior vena cava with normal inspiratory collapse consistent with estimated right atrial pre ssure of 5 mmHg. There is no pericardial effusion. CONCLUSIONS -------- 1. Sinus rhythm. 2. This was a technically good study. 3. The left ventricular size is normal. 4. Left ventricular wall thickness is normal. 5. Overall left ventricular systolic function is normal with, an EF between 60 - 65 %. 6. The right ventricle is normal in size. 7. Normal LA size by volume 22+/-6 ml/m2. 8. The right atrium is normal in size. 9. Contrast study was performed with 2 iv injections of 8 ccs of agitated normal saline, at rest, and with cough. 10. No PFO noted 11. Interatrial and interventricular septum intact. 12. The aortic valve is trileaflet and appears structurally normal. 13. The mitral valve is normal. 14. Mild tricuspid regurgitation present. 15. Right ventricular systolic pressure is normal at < 35 mmHg. 16. Trace/mild (physiologic) pulmonic regurgitation. 17. The aortic root size is normal. 18. Normal inferior vena cava with normal inspiratory collapse consistent with estimated right atrial pressure of 5 mmHg. 19. There is no pericardial effusion. PHARMACOLOGY PROFESSOR: Valery Vaca RDCS
--- NOTE | 2019-10-21 14:09 | MR ---
MR brain without contrast HISTORY: TIA versus TGA versus seizure, neuro deficit Multiplanar multisequence imaging obtained through the brain. Correlation to CT brain 10/11/2019 There is no restricted diffusion to suggest subacute ischemia. There is motion on the exam. Corpus ca llosum, measuring junction, cerebellopontine angles are within normal limits. There is partial sella. Orbits show symmetric appearance. There is no hemorrhage or hydrocephalus. There are normal vascular flow voids. IMPRESSION: No evidence of acute ischemia. Motion is present on the exam.
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
--- NOTE | 2019-10-21 14:58 | EEG ---
ELECTROENCEPHALOGRAM REPORT DATE OF SERVICE: 10/21/2019 PREAMBLE: This is a 49-year-old female who has history of transient global amnesia. This study is performed to evaluate for any epileptiform activity. EEG FINDINGS: This is a 21 channel routine EEG recording in a patient utilizing 10/20 international system with referential and bipolar montages. The recording starts with patient being in stage 2 sleep with abundant amount of sleep spindles, vertex waves and K complexes. The patient did wake up briefly during middle of the study before photic stimulation, in which the patient has normal background activity, consisting of posterior dominant 9- 10 Hz alpha, reactive to eye opening and closing. Photic driving response was seen. No new focal or generalized epileptiform activity was seen. IMPRESSION: This is a normal EEG mainly during stage 2 sleep. Brief period of wakefulness revealed no focal abnormalities. No epileptiform activities were seen. If your suspicion for seizures is high, suggest prolonged, sleep-deprived or ambulatory EEG. MMODL / IJN: [id number] /
[2019-10-21 17:13] VITALS: BP 115/63; PULSE 94; TEMP 97.8
== END 2019-10-21 18:57 | disposition home or self-care (01) ==
LOC: EC 02:32 → 1SOBS 04:09 → 3SCARD 04:53
PROVIDERS: ADMIT Hospitalist; ATTEND Hospitalist
DX: G45.4 Transient global amnesia (principal); I10 Essential (primary) hypertension; G70.00 Myasthenia gravis without (acute) exacerbation; J98.6 Disorders of diaphragm; F41.9 Anxiety disorder, unspecified; E03.9 Hypothyroidism, unspecified; Z99.81 Dependence on supplemental oxygen; J45.909 Unspecified asthma, uncomplicated; E66.9 Obesity, unspecified; Z68.35 Body mass index [BMI] 35.0-35.9, adult; M79.604 Pain in right leg; M79.605 Pain in left leg; R25.2 Cramp and spasm; R00.1 Bradycardia, unspecified; Z79.890 Hormone replacement therapy; Z79.899 Other long term (current) drug therapy; Z90.49 Acquired absence of other specified parts of digestive tract; Z98.891 History of uterine scar from previous surgery; Z87.891 Personal history of nicotine dependence; Z90.89 Acquired absence of other organs; Z86.69 Personal history of other diseases of the nervous system and sense organs; Z03.818 Encounter for observation for suspected exposure to other biological agents ruled out
CPT/HCPCS: 96361 ×3; 96372; 96374; 99285; 36415; 95819; 93005; 93306; 80061; 80053; 82550; 84484; 85025; 85610; 85730; 81003; 80306; 71045; 93970; 70496; 70450; 70498; 70551; G0378 ×4; U0003; J2060; J1644; Q9967

== ENCOUNTER → 2020-02-09 | Outpatient (CLI) | payer BC, MEDICARE ==
--- NOTE | 2020-02-16 10:28 | MM ---
Reason for exam: screening (asymptomatic). Last mammogram was performed 1 year and 11 months ago. History: Family history of breast cancer in aunt and breast cancer in grandmother. Reductions of both breasts, 1996. Took hormonal contraceptives for 1 year beginning at age 16. Physical Findings: A clinical breast exam by your physician is recommended on an annual basis and results should be correlated with mammographic findings. MG Screening Mammo w CAD Bilateral CC and MLO view(s) were taken. Prior study comparison: March 20, 2018, bilateral MG screening mammo w CAD. April 06, 2016, bilateral MG screening mammo w CAD. There are scattered fibroglandular densities. There is chronic nodularity in the right lower inner quadrant. No significant changes when compared with prior studies. ASSESSMENT: Negative, BI-RAD 1 RECOMMENDATION: Routine screening mammogram of both breasts in 1 year.
== END | disposition home or self-care (01) ==
LOC: RADMAMWWP 13:46
PROVIDERS: ATTEND Internal Medicine
DX: Z12.31 Encounter for screening mammogram for malignant neoplasm of breast (principal)
CPT/HCPCS: 77067

== ENCOUNTER → 2020-02-20 | Outpatient (CLI) | payer BC, MEDICARE | END | disposition home or self-care (01) | LOC: LABWHC1 10:00 | PROVIDERS: ATTEND Internal Medicine | DX: Z20.828 Contact with and (suspected) exposure to other viral communicable diseases (principal) | CPT/HCPCS: U0003; C9803 ==

== ENCOUNTER → 2021-07-01 | Outpatient (CLI) | payer BC, MEDICARE ==
--- NOTE | 2021-07-01 11:42 | MM ---
Reason for exam: screening (asymptomatic). Last mammogram was performed 1 year and 5 months ago. History: Family history of breast cancer in aunt and breast cancer in grandmother. Reductions of both breasts, 1996. Took hormonal contraceptives for 1 year beginning at age 16. Physical Findings: A clinical breast exam by your physician is recommended on an annual basis and results should be correlated with mammographic findings. MG 3D Screening Mammo W/Cad Bilateral CC and MLO view(s) were taken. Prior study comparison: February 09, 2020, bilateral MG screening mammo w CAD. March 20, 2018, bilateral MG screening mammo w CAD. There are scattered fibroglandular densities. There is no discrete abnormality including area of concern. Reduction mammoplasty bilaterally. No significant changes when compared with prior studies. ASSESSMENT: Benign, BI-RAD 2 RECOMMENDATION: Routine screening mammogram of both breasts in 1 year. Manage patient on a clinical basis.
== END | disposition home or self-care (01) ==
LOC: RADMAMWWP 07:08
PROVIDERS: ATTEND Internal Medicine
DX: Z12.31 Encounter for screening mammogram for malignant neoplasm of breast (principal); Z80.3 Family history of malignant neoplasm of breast
CPT/HCPCS: 77063; 77067

== ENCOUNTER → 2023-03-26 | Outpatient (CLI) | payer BC ==
--- NOTE | 2023-03-26 09:43 | MM ---
Reason for Exam: Clinical finding. Last mammogram was performed 1 year(s) and 9 month(s) ago. Patient History: Menarche at age 10. First Full-Term at age 19. Right ovary removed at age 35. Hysterectomy at age 35. Perimenopausal. Hormonal Contraceptives for 1 year from age 16 until age 17. 1995, Bilateral Reduction. Aunt had breast cancer. Risk Values: Maggie 5 year model risk: 1.1%. NCI Lifetime model risk: 7.4%. Tissue Density: There are scattered fibroglandular densities. Findings: Analyzed By CAD. No new suspicious masses, calcifications or distortions. Overall Assessment: Incomplete: need additional imaging evaluation, BI-RAD 0 Management: Diagnostic Breast Ultrasound of the right breast. Results were given to the patient verbally at the time of exam. Patient should continue monthly self-breast exams. A clinical breast exam by your physician is recommended on an annual basis. This exam should not preclude additional follow-up of suspicious palpable abnormalities. Note on Maggie scores and lifetime risk: 1. A Maggie score greater than 3% is considered moderate risk. If this is the case, consider specialist referral to assess eligibility for a risk reducing agent. 2. If overall lifetime risk for the development of breast cancer is 20% or higher, the patient may qualify for future screening with alternating mammogram and breast MRI. Electronically signed and approved by: Louis Spear DO
--- NOTE | 2023-03-26 10:09 | USB ---
Reason for Exam: Clinical finding. Patient History: Menarche at age 10. First Full-Term at age 19. Right ovary removed at age 35. Hysterectomy at age 35. Hormonal Contraceptives for 1 year from age 16 until age 17. 1996, Bilateral Reduction. Maternal grandmother had breast cancer. Maternal aunt had breast cancer. Risk Values: Maggie 5 year model risk: 1.1%. NCI Lifetime model risk: 7.4%. Technique: Method: Targeted. Prior Study Comparison: 03/20/2018 Bilateral Screening Mammogram, [facility]. 02/09/2020 Bilateral Screening Mammogram, [facility]. 07/01/2021 Bilateral Screening Mammogram, [facility]. Findings: The area of palpable concern of the right breast, the axilla of the right breast and the retroareolar of the right breast were scanned. Technique utilized:US breast limited RT Image; Ultrasound imaging of: Area of concern, retroareolar region and axilla. Intraductal mass with central color Doppler flow. Overall Assessment: Suspicious, BI-RAD 4 Management: Ultrasound Core Biopsy of the right breast. Highly likely representing a intraductal papilloma. A clinical breast exam by your physician is recommended on an annual basis and results should be correlated with mammographic findings. This exam should not preclude additional follow-up of suspicious palpable abnormalities. Results were given to the patient verbally at the time of exam. Electronically signed and approved by: Louis Spear DO
== END | disposition home or self-care (01) ==
LOC: RADMAMWWP 08:58
PROVIDERS: ATTEND Internal Medicine
DX: N63.10 Unspecified lump in the right breast, unspecified quadrant (principal); R92.323 Mammographic fibroglandular density, bilateral breasts; Z80.3 Family history of malignant neoplasm of breast
CPT/HCPCS: 77062; 77066

== ENCOUNTER → 2023-04-04 | Day surgery (SDC) | payer BC ==
--- NOTE | 2023-04-13 13:46 | MM ---
Reason for Exam: Post Procedure Mammogram. Last screening mammogram was performed less than 1 month ago. Patient History: Menarche at age 10. First Full-Term at age 19. Right ovary removed at age 35. Hysterectomy at age 35. Perimenopausal. Hormonal Contraceptives for 1 year from age 16 until age 17. 1996, Bilateral Reduction. Maternal aunt had breast cancer. Risk Values: Maggie 5 year model risk: 1.1%. NCI Lifetime model risk: 7.4%. Prior Study Comparison: 02/09/2020 Bilateral Screening Mammogram, [facility]. 07/01/2021 Bilateral Screening Mammogram, [facility]. 03/26/2023 Bilateral MG 3D diag mammo w/cad [facility], [facility]. Tissue Density: Right: There are scattered fibroglandular densities. Pathology Description: Location: 6 o'clock. Marker Left Behind. Needle Type: Mammotome Cores: 5 Skin Nicks: 1 The procedure of ultrasound guided core biopsy was explained to the patient. Benefits, alternatives, and risks were discussed. An informed consent was then obtained. A timeout was performed. The patient was placed in supine positioning for imaging and for the procedure. The overlying skin was prepped and draped in usual sterile fashion. Lidocaine was used as anesthetic into the skin and subcutaneous tissue up to area of concern in the right breast. A small skin izabel was made with surgical scalpel. Under ultrasound guidance, a 12-gauge vacuum assisted biopsy gun device was used to obtain 5 core samples. A biopsy clip was left in lesion. Hydromark coil core marker was placed. The patient tolerated the procedure well without any immediate complication. The patient was kept in the radiology department for short stay after the procedure and then discharged home in stable condition. Postprocedure mammogram: The patient was transferred to mammography for physician ordered post procedure mammogram for clip placement verification. Impression: Successful ultrasound guided core biopsy of area of concern in the right breast, full pathology results to follow. Recommendations: 1. Recommendations are pending pathology results. Pathology Results: Result: Benign, Benign cyst. RIGHT BREAST, 6:00 POSITION, ULTRASOUND GUIDED CORE BIOPSY: Benign fragmented and collapsed ductal cyst with hemorrhage and fibrosis. Negative for malignancy or diagnostic features of intraductal papilloma (see note). Notes Per EMR, it is noted there was a recent ultrasound report which states that there are features possibly representing an intraductal papilloma. Examination reveals no diagnostic features of intraductal papilloma or malignancy. Intradepartmental consultation with Dr. Patrick Leonardo is in agreement with this assessment. Correlation with imaging studies is suggested, as deemed clinically appropriate. Overall Assessment: Benign Assessment: MG diagnostic mammo RT wo CAD - Right: Benign, BI-RAD 2. Management: Diagnostic Mammogram of the right breast in 6 months. Electronically signed and approved by: Lennox العراقي D.O. Radiologis
== END ==
LOC: RADUSWWP 07:47
PROVIDERS: ATTEND Internal Medicine
DX: N60.01 Solitary cyst of right breast (principal); Z80.3 Family history of malignant neoplasm of breast
CPT/HCPCS: 88305; 77065; 19083; A4648

== ENCOUNTER → 2023-11-16 | Outpatient (CLI) | payer BC ==
--- NOTE | 2023-11-16 08:12 | MM ---
Reason for Exam: Additional evaluation requested from abnormal screening. Last screening mammogram was performed 7 month(s) ago. Patient History: Menarche at age 10. First Full-Term at age 19. Right ovary removed at age 35. Hysterectomy at age 35. Postmenopausal. Patient has history of breast feeding. Hormonal Contraceptives for 1 year from age 16 until age 17. 04/04/2023, Benign US biopsy breast VAD RT on the right side. 1995, Bilateral Reduction. Maternal aunt had breast cancer. Risk Values: Maggie 5 year model risk: 1.2%. NCI Lifetime model risk: 8.7%. Prior Study Comparison: 04/09/2015 Bilateral Screening Mammogram, [facility]. 04/06/2016 Bilateral Screening Mammogram, [facility]. 03/20/2018 Bilateral Screening Mammogram, [facility]. 02/09/2020 Bilateral Screening Mammogram, [facility]. 07/01/2021 Bilateral Screening Mammogram, [facility]. 03/26/2023 Bilateral MG 3D diag mammo w/cad [facility], [facility]. 04/04/2023 Right MG diagnostic mammo RT wo CAD, [facility]. Tissue Density: Right: There are scattered areas of fibroglandular density. Findings: Analyzed By CAD. Microclip marker from prior breast biopsy. No recurrent mass. No evidence for suspicious calcifications or distortion. Overall Assessment: Benign, BI-RAD 2 Management: Screening Mammogram of both breasts in 1 year. . Results were given to the patient verbally at the time of exam. Patient should continue monthly self-breast exams. A clinical breast exam by your physician is recommended on an annual basis. This exam should not preclude additional follow-up of suspicious palpable abnormalities. Note on Maggie scores and lifetime risk: 1. A Maggie score greater than 3% is considered moderate risk. If this is the case, consider specialist referral to assess eligibility for a risk reducing agent. 2. If overall lifetime risk for the development of breast cancer is 20% or higher, the patient may qualify for future screening with alternating mammogram and breast MRI. Electronically signed and approved by: Jovani Ash M.D. Radiologis
== END | disposition home or self-care (01) ==
LOC: RADMAMWWP 07:05
PROVIDERS: ATTEND Internal Medicine
DX: R92.8 Other abnormal and inconclusive findings on diagnostic imaging of breast (principal); R92.321 Mammographic fibroglandular density, right breast; Z78.0 Asymptomatic menopausal state; Z80.3 Family history of malignant neoplasm of breast
CPT/HCPCS: 77061; 77065

== ENCOUNTER → 2024-02-04 | Outpatient (CLI) | payer BC ==
--- NOTE | 2024-02-04 08:42 | MR ---
EXAMINATION TYPE: MR cervical spine wo con DATE OF EXAM: 02/04/2024 COMPARISON: HISTORY: Neck pain for a long time TECHNIQUE: Multiplanar, multisequence images of the cervical spine were acquired without contrast. FINDINGS: Alignment: The cervical vertebral bodies have preserved heights. Alignment is within normal limits gi daniel patient positioning. Bones: Bone signal is within normal limits. Cord: The spinal cord is unremarkable with regards to their signal intensity and morphology. Discs: Minimal multilevel disc desiccation is present. No significant disc height loss. C2-C3: No significant disc pathology. The spinal canal is patent. No neural foraminal stenosis. C3-C4: No significant disc pathology. The spinal canal is patent. No neural foraminal stenosis. C4-C5: No significant disc pathology. The spinal canal is patent. No neural foraminal stenosis. C5-C6: No significant disc pathology. The spinal canal is patent. No neural foraminal stenosis. C6-C7: No significant disc pathology. The spinal canal is patent. No neural foraminal stenosis. C7-T1: No significant disc pathology. The spinal canal is patent. No neural foraminal stenosis. Other: None. IMPRESSION: No evidence for disc herniation or significant spinal canal stenosis. No significant degenerative dis c disease. [facility], , 02/04/2024 8:40 AM
== END ==
LOC: RADMRIMAIN 06:03
PROVIDERS: ATTEND Psychiatry & Neurology Neurology
DX: M54.2 Cervicalgia (principal)
CPT/HCPCS: 72141